=== PATIENT | female | born 1950 | race African-American/Black ===

== ENCOUNTER 2023-06-22 16:04 | Inpatient (IN) | payer BC ==
[~2023-06-22] VITALS: Ht 170.2 cm; Wt 60.8 kg
[2023-06-22] MEDS ORDERED: ONDANSETRON HCL 4MG/2ML INJ IV STA (16:24)
[2023-06-22] MEDS ORDERED: FAMOTIDINE 20MG/2ML VIAL IV STA (16:24)
[2023-06-22] MEDS ORDERED: SODIUM CHLORIDE 0.9% 1,000 ML IV ONE (16:30)
[2023-06-22 17:18] LABS: BASOPHILS % 0.8 % (0.0-2.0); EOSINOPHILS % 0.8 % (0.0-5.0); HEMATOCRIT. 36.8 % (36.0-48.0); LYMPHOCYTES % 27.2 % (20.0-50.0); MEAN CORPUSCULAR HEMOGLOBIN 28.1 pg (28.0-32.0); MEAN CORPUSCULAR HGB CONC 32.5 g/dL (31.0-37.0); MEAN CORPUSCULAR VOLUME 86.6 fL (81.0-99.0); MEAN PLATELET VOLUME 9.8 fl (7.4-10.4); MONOCYTES % 6.7 % (2.0-8.0); NEUTROPHILS % 64.5 % (40.0-76.0); PLATELET 179 x1000/uL (130-400); RED BLOOD CELL COUNT 4.26 mill/uL (4.2-5.4); WHITE BLOOD COUNT 4.2 x1000/uL (4.5-11.0)
[2023-06-22 17:28] LABS: CLARITY URINE CLEAR (CLEAR); COLOR URINE YELLOW (YELLOW); GLUCOSE URINE NEGATIVE (NEGATIVE); KETONES URINE NEGATIVE (NEGATIVE); LEUKOCYTE ESTERASE URINE NEGATIVE (NEGATIVE); NITRITE URINE NEGATIVE (NEGATIVE); OCCULT BLOOD URINE NEGATIVE (NEGATIVE); PROTEIN URINE NEGATIVE (NEGATIVE); SPECIFIC GRAVITY URINE 1.006 (1.005-1.030); UROBILINOGEN URINE 0.2 E.U./dL (0.2-1.0)
[2023-06-22 17:43] LABS: ALANINE AMINOTRANSFERASE < 7 IU/L (10-49); ALBUMIN 4.2 g/dL (3.2-4.8); ASPARTATE AMINOTRANSFERASE 17 IU/L (<34); BILIRUBIN TOTAL 1.1 mg/dL (0.1-1.0); CARBON DIOXIDE 27 mEq/L (21-32); CHLORIDE 107 mEq/L (98-107); CREATININE 0.9 mg/dL (0.6-1.0); GLUCOSE 99 mg/dL (70-105); POTASSIUM 3.4 mEq/L (3.5-5.1); PROTEIN TOTAL 7.4 g/dL (6.0-8.3); SODIUM 144 mEq/L (136-145); TROPONIN I HIGH SENSITIVITY 8 ng/L (3.0-34); UREA NITROGEN BLOOD 9 mg/dL (9-23)
[2023-06-22 17:50] LABS: LACTIC ACID 2.1 mmol/L (0.4-2.0)
[2023-06-22] MEDS ORDERED: ATOR40TA70 PO (19:23)
[2023-06-22] MEDS ORDERED: LEVO50TA8 PO (19:23)
[2023-06-22] MEDS ORDERED: PANT20TA17 PO (19:23)
[2023-06-22] MEDS ORDERED: AMLO10TA80 PO (19:23)
[2023-06-22] MEDS ORDERED: DULO20CA18 PO (19:23)
[2023-06-22] MEDS ORDERED: MAGNESIUM/ALUMINUM HYDROXIDE/SIMETHICONE 30ML UDC PO PRN (19:30)
[2023-06-22] MEDS ORDERED: CLONIDINE 0.1MG TABLET PO PRN (19:30)
[2023-06-22] MEDS ORDERED: ACETAMINOPHEN 650MG/20.3ML UDC GT PRN (19:30)
[2023-06-22] MEDS ORDERED: AMLODIPINE 5MG TABLET PO SCH (19:30)
[2023-06-22] MEDS ORDERED: DOCUSATE SODIUM 100MG CAPSULE PO PRN (19:30)
[2023-06-22] MEDS: ATORVASTATIN CALCIUM 40MG TABLET PO SCH (19:30)
[2023-06-22] MEDS: LEVOTHYROXINE SODIUM 50MCG TABLET PO SCH (19:30)
[2023-06-22] MEDS: DULOXETINE HCL 20MG DR CAPSULE PO SCH (19:30)
[2023-06-22] MEDS: PANTOPRAZOLE 40MG DR TABLET PO SCH (21:00)
[2023-06-22 21:50] VITALS: BP 161/79; PULSE 66; RESP 18; TEMP 97.1
[2023-06-22 22:00] VITALS: BP 161/79; PULSE 66; RESP 18; TEMP 97.1
[2023-06-22] MEDS: AMLODIPINE 10MG TABLET PO SCH (22:32)
[2023-06-22] MEDS: ZOLPIDEM TARTRATE 5MG TABLET PO PRN (22:32)
[2023-06-23] MEDS ORDERED: AMLO5TAB88 MT (00:01)
[2023-06-23] MEDS ORDERED: LIP40 MT (00:01)
[2023-06-23 04:00] VITALS: BP 117/60; PULSE 65; RESP 18; TEMP 97.5
[2023-06-23] MEDS: PANTOPRAZOLE 40MG DR TABLET PO SCH ×2 (04:15→20:12)
[2023-06-23 06:11] LABS: CALCIUM 9.5 mg/dL (8.7-10.4); CARBON DIOXIDE 31 mEq/L (21-32); CHLORIDE 108 mEq/L (98-107); CREATININE 0.9 mg/dL (0.6-1.0); GLUCOSE 80 mg/dL (70-105); POTASSIUM 3.5 mEq/L (3.5-5.1); SODIUM 144 mEq/L (136-145); UREA NITROGEN BLOOD 6 mg/dL (9-23)
[2023-06-23 06:22] LABS: BASOPHILS % 0.9 % (0.0-2.0); LYMPHOCYTES % 41.2 % (20.0-50.0); MEAN CORPUSCULAR HEMOGLOBIN 28.1 pg (28.0-32.0); MEAN CORPUSCULAR HGB CONC 33.4 g/dL (31.0-37.0); MEAN CORPUSCULAR VOLUME 84.2 fL (81.0-99.0); MEAN PLATELET VOLUME 9.7 fl (7.4-10.4); MONOCYTES % 8.1 % (2.0-8.0); NEUTROPHILS % 47.8 % (40.0-76.0); PLATELET 152 x1000/uL (130-400); RED BLOOD CELL COUNT 3.92 mill/uL (4.2-5.4); WHITE BLOOD COUNT 3.2 x1000/uL (4.5-11.0)
[2023-06-23 08:00] VITALS: BP 118/54; PULSE 57; RESP 20; TEMP 97.9
[2023-06-23] MEDS: AMLODIPINE 10MG TABLET PO SCH (09:00)
[2023-06-23] MEDS: ATORVASTATIN CALCIUM 40MG TABLET PO SCH (09:00)
[2023-06-23] MEDS: DULOXETINE HCL 20MG DR CAPSULE PO SCH (09:00)
[2023-06-23] MEDS: LEVOTHYROXINE SODIUM 50MCG TABLET PO SCH (09:00)
[2023-06-23] MEDS: ENOXAPARIN 40MG/0.4ML SYR SUBCUT SCH (09:01)
[2023-06-23] MEDS: ONDANSETRON HCL 4MG/2ML INJ IV PRN ×2 (10:06→17:44)
[2023-06-23] MEDS ORDERED: ACETAMINOPHEN 325MG TABLET PO PRN (11:30)
[2023-06-23 13:04] VITALS: BP 133/65; PULSE 68; RESP 20; TEMP 97.5
[2023-06-23 16:00] VITALS: BP 140/97; PULSE 69; RESP 20; TEMP 97.4
[2023-06-23 20:00] VITALS: BP 123/48; PULSE 68; RESP 17; TEMP 97.9
[2023-06-23] MEDS: DOCUSATE SODIUM 250MG CAPSULE PO SCH (20:10)
[2023-06-23] MEDS: ZOLPIDEM TARTRATE 5MG TABLET PO PRN (20:10)
[2023-06-24] VITALS: BP 105/62; PULSE 66; RESP 16; TEMP 97.7
[2023-06-24 04:00] VITALS: BP 115/91; PULSE 65; RESP 17; TEMP 98.6
[2023-06-24] MEDS: PANTOPRAZOLE 40MG DR TABLET PO SCH (07:00)
[2023-06-24] MEDS ORDERED: LEVOTHYROXINE SODIUM 50MCG TABLET PO SCH (07:20)
[2023-06-24 08:00] VITALS: BP 148/76; PULSE 62; RESP 18; TEMP 98
[2023-06-24] MEDS: AMLODIPINE 10MG TABLET PO SCH (08:27)
[2023-06-24] MEDS: ENOXAPARIN 40MG/0.4ML SYR SUBCUT SCH (08:32)
[2023-06-24] MEDS: DULOXETINE HCL 20MG DR CAPSULE PO SCH ×2 (08:39→08:44)
[2023-06-24] MEDS: DOCUSATE SODIUM 250MG CAPSULE PO SCH (08:40)
[2023-06-24] MEDS ORDERED: OMEP40CA20 MT (11:12)
[2023-06-24 13:22] VITALS: BP 117/63; PULSE 60; TEMP 98; O2SAT 100
[2023-06-24] MEDS ORDERED: ATORVASTATIN CALCIUM 40MG TABLET PO SCH (21:00)
== END 2023-06-24 13:30 | disposition home or self-care (01) | DRG 392 ==
LOC: ER 16:04 → EDBEDREQ 17:04 → EDBEDREQTM 18:36 → EDBEDREQ 18:36 → MICUSO 18:49 → 6WST 21:55
PROVIDERS: ADMIT Internal Medicine Pulmonary Disease; ATTEND Internal Medicine Pulmonary Disease
DX: K21.9 Gastro-esophageal reflux disease without esophagitis (principal); R07.9 Chest pain, unspecified; I10 Essential (primary) hypertension; D72.819 Decreased white blood cell count, unspecified; E03.9 Hypothyroidism, unspecified; E78.5 Hyperlipidemia, unspecified; E87.6 Hypokalemia
CPT/HCPCS: 36415; 74177; 76700; 80048; 80053; 81003; 83605; 84484; 85025; 93005; 99285; J1650; J2405; J3490; J7030